=== PATIENT | male | born 1990 | race Caucasian/White ===

== ENCOUNTER → 2021-01-25 08:06 | Emergency (ER) | payer OTHER, SELFPAY ==
[~2021-01-25 08:06] MED LIST: Bacitracin 1 PK ONE; Boostrix 0.5 ML (Tdap) VIAL ONE; Sulfameth/Trimethoprim DS 800-160mg TAB ONE
== END | disposition home or self-care (01) ==
LOC: CSHERS 08:06
DX: S61.251A Open bite of left index finger without damage to nail, initial encounter (principal); L03.012 Cellulitis of left finger; Z23 Encounter for immunization; W54.0XXA Bitten by dog, initial encounter
CPT/HCPCS: 90471; 90715